=== PATIENT | male | born 1965 | race Caucasian/White ===

== ENCOUNTER 2018-11-12 08:35 | Inpatient (IN) | payer OTHER ==
[2018-11-12 09:03] VITALS: BMI 25.9
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
[2018-11-12] MEDS ORDERED: IBUPROFEN 400 MG TABLET (FP) PO PRN (09:30)
[2018-11-12] MEDS ORDERED: MAGNESIUM CITRATE 300 ML BOTTLE PO PRN (09:30)
[2018-11-12] MEDS ORDERED: MENTHOL/PHENOL 1 EACH UD MM PRN (09:30)
[2018-11-12] MEDS ORDERED: MAGNESIUM HYDROX 2400MG/30ML ORAL SUSPENSION 30 ML CUP PO PRN (09:30)
[2018-11-12] MEDS ORDERED: BISMUTH SUBSALICYLATE 524 MG/30 ML UD PO PRN (09:30)
[2018-11-12] MEDS ORDERED: METHADONE HCL 10 MG TABLET (FOR DETOX USE ONLY) PO ONE (09:30)
[2018-11-12] MEDS ORDERED: MAG HYDROX/AL HYDROX/SIMETH 30 ML UNIT-DOSE CUP PO PRN (09:30)
[2018-11-12] MEDS ORDERED: METHOCARBAMOL 500 MG TABLET PO PRN (09:30)
[2018-11-12] MEDS ORDERED: cloNIDine HCL 0.1 MG TABLET PO PRN (09:30)
[2018-11-12] MEDS ORDERED: ACETAMINOPHEN 325 MG TABLET (FP) PO PRN ×2 (09:30)
[2018-11-12] MEDS: amLODIPine BESYLATE 5 MG TABLET (FP) PO SCH (10:52)
[2018-11-12] MEDS: PRENATAL VITAMINS W/ FOLIC ACID TABLET (FP) PO SCH (10:52)
[2018-11-12] MEDS: NICOTINE 7 MG/24 HOURS TOPICAL PATCH TD SCH ×2 (10:54→12:22)
[2018-11-12 15:21] LABS: HEMATOCRIT 46.4 % (35.4-49); HEMOGLOBIN 15.9 GM/dL (11.7-16.9); MCH 32.2 pg (25.7-33.7); MCHC 34.3 g/dl (32.0-35.9); PLATELET COUNT 204 K/MM3 (134-434); RBC 4.93 M/mm3 (4.00-5.60); RDW 13.5 % (11.9-15.9); WHITE BLOOD COUNT 7.2 K/mm3 (4.0-10.0)
[2018-11-12 15:37] LABS: ALBUMIN 3.8 g/dl (3.4-5.0); BILIRUBIN,TOTAL 0.4 mg/dL (0.2-1); BLOOD UREA NITROGEN 12.6 mg/dL (7-18); CALCIUM 9.5 mg/dL (8.5-10.1); CREATININE 0.9 mg/dL (0.55-1.3); POTASSIUM 4.7 mmol/L (3.5-5.1); TOT PROT 7.5 g/dl (6.4-8.2)
[2018-11-12] MEDS: THIAMINE HCL 100 MG TABLET (FP) PO SCH (22:09)
[2018-11-12] MEDS: MELATONIN 5 MG TABLETS PO PRN (22:10)
[2018-11-13] MEDS ORDERED: METHADONE HCL 10 MG TABLET (FOR DETOX USE ONLY) ONE (09:20)
[2018-11-13] MEDS ORDERED: METHADONE HCL 5 MG TABLET (FOR DETOX USE ONLY) ONE (09:20)
[2018-11-13] MEDS: hydrOXYzine PAMOATE 25 MG CAPSULE (FP) PO PRN (09:53)
[2018-11-13] MEDS: amLODIPine BESYLATE 5 MG TABLET (FP) PO SCH (09:53)
[2018-11-13] MEDS: PRENATAL VITAMINS W/ FOLIC ACID TABLET (FP) PO SCH (09:53)
[2018-11-13] MEDS: NICOTINE 7 MG/24 HOURS TOPICAL PATCH TD SCH (09:55)
[2018-11-13] MEDS ORDERED: METHADONE (DETOX) 20 MG, METHADONE (DETOX) 5 MG PO ONE (10:00)
--- NOTE | 2018-11-13 16:21 | PN ---
BHS COWS - Scale Resting Pulse: 1= [place] 81-100 Sweatin= Chills/Flushing Restless Observation: 1= Difficult to Sit Still Pupil Size: 0= Normal to Room Light Bone or Joint Aches: 1= Mild Discomfort Runny Nose/ Eye Tearin= Nasal Congestion GI Upset > 30mins: 2= Nausea/Diarrhea Tremor Observation of Outstretched Hands: 2= Slight Tremor Visible Yawning Observation: 1= 1-2x During Session Anxiety or Irritability: 2=Irritable/Anxious Goose Flesh Skin: 0=Smooth Skin COWS Score: 12 BHS Progress Note (SOAP) Subjective: Nausea, Runny Nose, Anxious, Tremors Objective: PATIENT A & O X 3, OBSERVED AMBULATING ON DETOX UNIT UNASSISTED. IN NO ACUTE DISTRESS. 11/13/18 16:22 Vital Signs Temperature 97.8 F 11/13/18 13:37 Pulse Rate 84 11/13/18 13:37 Respiratory Rate 20 11/13/18 13:37 Blood Pressure 120/68 11/13/18 13:37 O2 Sat by Pulse Oximetry (%) Laboratory Tests 11/12/18 11/12/18 11/12/18 09:50 09:50 09:50 WBC 7.2 RBC 4.93 Hgb 15.9 Hct 46.4 MCV 94.0 MCH 32.2 MCHC 34.3 RDW 13.5 Plt Count 204 MPV 10.0 Sodium 137 Potassium 4.7 Chloride 100 Carbon Dioxide 31 Anion Gap 6 L BUN 12.6 Creatinine 0.9 Est GFR (CKD-EPI)AfAm 113.41 Est GFR (CKD-EPI)NonAf 97.85 Random Glucose 96 Calcium 9.5 Total Bilirubin 0.4 AST 9 L ALT 24 Alkaline Phosphatase 85 Total Protein 7.5 Albumin 3.8 RPR Titer Nonreactive HIV 1&2 Antibody Screen HIV P24 Antigen 11/12/18 09:50 WBC RBC Hgb Hct MCV MCH MCHC RDW Plt Count MPV Sodium Potassium Chloride Carbon Dioxide Anion Gap BUN Creatinine Est GFR (CKD-EPI)AfAm Est GFR (CKD-EPI)NonAf Random Glucose Calcium Total Bilirubin AST ALT Alkaline Phosphatase Total Protein Albumin RPR Titer HIV 1&2 Antibody Screen Negative HIV P24 Antigen Negative LABS NOTED. Assessment: 11/13/18 16:23 WITHDRAWAL SYMPTOMS. Plan: CONTINUE DETOX.
[2018-11-13] MEDS: MELATONIN 5 MG TABLETS PO PRN (22:07)
[2018-11-13] MEDS: THIAMINE HCL 100 MG TABLET (FP) PO SCH (22:07)
[2018-11-14] MEDS ORDERED: METHADONE HCL 10 MG TABLET (FOR DETOX USE ONLY) PO ONE (10:00)
[2018-11-14] MEDS: amLODIPine BESYLATE 5 MG TABLET (FP) PO SCH (10:34)
[2018-11-14] MEDS: PRENATAL VITAMINS W/ FOLIC ACID TABLET (FP) PO SCH (10:34)
[2018-11-14] MEDS: hydrOXYzine PAMOATE 25 MG CAPSULE (FP) PO PRN ×2 (10:35→21:49)
[2018-11-14] MEDS: NICOTINE 7 MG/24 HOURS TOPICAL PATCH TD SCH (10:35)
--- NOTE | 2018-11-14 11:14 | PN ---
BHS COWS - Scale Resting Pulse: 1= [place] 81-100 Sweatin= Chills/Flushing Restless Observation: 1= Difficult to Sit Still Pupil Size: 0= Normal to Room Light Bone or Joint Aches: 1= Mild Discomfort Runny Nose/ Eye Tearin= Nasal Congestion GI Upset > 30mins: 0= None Tremor Observation of Outstretched Hands: 1= Tremor [place], Not Seen Yawning Observation: 0= None Anxiety or Irritability: 1=Feels Anxious/Irritable Goose Flesh Skin: 0=Smooth Skin COWS Score: 7 BHS Progress Note (SOAP) Subjective: c/o anxious, body aches Objective: 11/14/18 11:12 Vital Signs Temperature 98.0 F 11/14/18 09:13 Pulse Rate 91 H 11/14/18 09:13 Respiratory Rate 20 11/14/18 09:13 Blood Pressure 113/69 11/14/18 09:13 O2 Sat by Pulse Oximetry (%) Laboratory Last Values WBC 7.2 K/mm3 (4.0-10.0) 11/12/18 09:50 RBC 4.93 M/mm3 (4.00-5.60) 11/12/18 09:50 Hgb 15.9 GM/dL (11.7-16.9) 11/12/18 09:50 Hct 46.4 % (35.4-49) 11/12/18 09:50 MCV 94.0 fl (80-96) 11/12/18 09:50 MCH 32.2 pg (25.7-33.7) 11/12/18 09:50 MCHC 34.3 g/dl (32.0-35.9) 11/12/18 09:50 RDW 13.5 % (11.9-15.9) 11/12/18 09:50 Plt Count 204 K/MM3 (134-434) 11/12/18 09:50 MPV 10.0 fl (7.5-11.1) 11/12/18 09:50 Sodium 137 mmol/L (136-145) 11/12/18 09:50 Potassium 4.7 mmol/L (3.5-5.1) 11/12/18 09:50 Chloride 100 mmol/L (98-107) 11/12/18 09:50 Carbon Dioxide 31 mmol/L (21-32) 11/12/18 09:50 Anion Gap 6 MMOL/L (8-16) L 11/12/18 09:50 BUN 12.6 mg/dL (7-18) 11/12/18 09:50 Creatinine 0.9 mg/dL (0.55-1.3) 11/12/18 09:50 Est GFR (CKD-EPI)AfAm 113.41 11/12/18 09:50 Est GFR (CKD-EPI)NonAf 97.85 11/12/18 09:50 Random Glucose 96 mg/dL (74-106) 11/12/18 09:50 Calcium 9.5 mg/dL (8.5-10.1) 11/12/18 09:50 Total Bilirubin 0.4 mg/dL (0.2-1) 11/12/18 09:50 AST 9 U/L (15-37) L 11/12/18 09:50 ALT 24 U/L (13-61) 11/12/18 09:50 Alkaline Phosphatase 85 U/L (45-117) 11/12/18 09:50 Total Protein 7.5 g/dl (6.4-8.2) 11/12/18 09:50 Albumin 3.8 g/dl (3.4-5.0) 11/12/18 09:50 RPR Titer Nonreactive (NONREACTIVE) 11/12/18 09:50 HIV 1&2 Antibody Screen Negative 11/12/18 09:50 HIV P24 Antigen Negative 11/12/18 09:50 labs reviewed Assessment: 11/14/18 11:12 Aox3 no acute distress full ROM no gait abnormality, ambulating in the unit withdrawal sx Plan: continue detox MAT discussed with patient , plans to go to methadone treatment program post detox increase fluids continue to monitor
[2018-11-14] MEDS: MELATONIN 5 MG TABLETS PO PRN (21:49)
[2018-11-14] MEDS: THIAMINE HCL 100 MG TABLET (FP) PO SCH (21:49)
[2018-11-15] MEDS ORDERED: METHADONE HCL 10 MG TABLET (FOR DETOX USE ONLY) ONE (09:09)
[2018-11-15] MEDS ORDERED: METHADONE HCL 5 MG TABLET (FOR DETOX USE ONLY) ONE (09:10)
[2018-11-15] MEDS ORDERED: METHADONE (DETOX) 10 MG, METHADONE (DETOX) 5 MG PO ONE (10:00)
[2018-11-15] MEDS: PRENATAL VITAMINS W/ FOLIC ACID TABLET (FP) PO SCH (10:40)
[2018-11-15] MEDS: NICOTINE 7 MG/24 HOURS TOPICAL PATCH TD SCH (10:41)
[2018-11-15] MEDS: amLODIPine BESYLATE 5 MG TABLET (FP) PO SCH (10:41)
--- NOTE | 2018-11-15 17:06 | PN ---
BHS COWS - Scale Resting Pulse: 0= [place] 80 or Below Sweatin= Chills/Flushing Restless Observation: 1= Difficult to Sit Still Pupil Size: 0= Normal to Room Light Bone or Joint Aches: 2= Severe Diffuse Aches Runny Nose/ Eye Tearin= None GI Upset > 30mins: 0= None Tremor Observation of Outstretched Hands: 0= None Yawning Observation: 1= 1-2x During Session Anxiety or Irritability: 2=Irritable/Anxious Goose Flesh Skin: 0=Smooth Skin COWS Score: 7 BHS Progress Note (SOAP) Subjective: Anxious, Restless, Body Aches. Objective: PATIENT A & O X 3, OBSERVED AMBULATING ON DETOX UNIT UNASSISTED. IN NO ACUTE DISTRESS. 11/15/18 17:05 Vital Signs Temperature 99.4 F 11/15/18 14:15 Pulse Rate 70 11/15/18 14:15 Respiratory Rate 16 11/15/18 14:15 Blood Pressure 102/70 11/15/18 14:15 O2 Sat by Pulse Oximetry (%) Laboratory Tests 11/12/18 11/12/18 11/12/18 09:50 09:50 09:50 WBC 7.2 RBC 4.93 Hgb 15.9 Hct 46.4 MCV 94.0 MCH 32.2 MCHC 34.3 RDW 13.5 Plt Count 204 MPV 10.0 Sodium 137 Potassium 4.7 Chloride 100 Carbon Dioxide 31 Anion Gap 6 L BUN 12.6 Creatinine 0.9 Est GFR (CKD-EPI)AfAm 113.41 Est GFR (CKD-EPI)NonAf 97.85 Random Glucose 96 Calcium 9.5 Total Bilirubin 0.4 AST 9 L ALT 24 Alkaline Phosphatase 85 Total Protein 7.5 Albumin 3.8 RPR Titer Nonreactive HIV 1&2 Antibody Screen HIV P24 Antigen 11/12/18 09:50 WBC RBC Hgb Hct MCV MCH MCHC RDW Plt Count MPV Sodium Potassium Chloride Carbon Dioxide Anion Gap BUN Creatinine Est GFR (CKD-EPI)AfAm Est GFR (CKD-EPI)NonAf Random Glucose Calcium Total Bilirubin AST ALT Alkaline Phosphatase Total Protein Albumin RPR Titer HIV 1&2 Antibody Screen Negative HIV P24 Antigen Negative LABS NOTED. Assessment: 11/15/18 17:06 WITHDRAWAL SYMPTOMS. Plan: CONTINUE DETOX.
[2018-11-15] MEDS: hydrOXYzine PAMOATE 25 MG CAPSULE (FP) PO PRN (22:13)
[2018-11-15] MEDS: MELATONIN 5 MG TABLETS PO PRN (22:13)
[2018-11-15] MEDS: THIAMINE HCL 100 MG TABLET (FP) PO SCH (22:13)
[2018-11-16] MEDS: PRENATAL VITAMINS W/ FOLIC ACID TABLET (FP) PO SCH (09:25)
[2018-11-16] MEDS: amLODIPine BESYLATE 5 MG TABLET (FP) PO SCH (09:25)
[2018-11-16] MEDS: NICOTINE 7 MG/24 HOURS TOPICAL PATCH TD SCH (09:25)
[2018-11-16] MEDS ORDERED: METHADONE HCL 10 MG TABLET (FOR DETOX USE ONLY) PO ONE (10:00)
[2018-11-16] MEDS ORDERED: BACITRACIN 15 GM TUBE TOPICAL OINTMENT TP ONE (14:26)
--- NOTE | 2018-11-16 17:06 | PN ---
BHS COWS - Scale Resting Pulse: 0= [place] 80 or Below Sweatin= No chills or Flushing Restless Observation: 1= Difficult to Sit Still Pupil Size: 0= Normal to Room Light Bone or Joint Aches: 2= Severe Diffuse Aches Runny Nose/ Eye Tearin= None GI Upset > 30mins: 0= None Tremor Observation of Outstretched Hands: 0= None Yawning Observation: 1= 1-2x During Session Anxiety or Irritability: 2=Irritable/Anxious Goose Flesh Skin: 0=Smooth Skin COWS Score: 6 BHS Progress Note (SOAP) Subjective: Restless, Body Aches, Poor Appetite. Objective: PATIENT A & O X 3, OBSERVED AMBULATING ON DETOX UNIT UNASSISTED. IN NO ACUTE DISTRESS. 11/16/18 17:04 Vital Signs Temperature 97.9 F 11/16/18 13:36 Pulse Rate 78 11/16/18 13:36 Respiratory Rate 18 11/16/18 13:36 Blood Pressure 111/68 11/16/18 13:36 O2 Sat by Pulse Oximetry (%) Laboratory Tests 11/12/18 11/12/18 11/12/18 09:50 09:50 09:50 WBC 7.2 RBC 4.93 Hgb 15.9 Hct 46.4 MCV 94.0 MCH 32.2 MCHC 34.3 RDW 13.5 Plt Count 204 MPV 10.0 Sodium 137 Potassium 4.7 Chloride 100 Carbon Dioxide 31 Anion Gap 6 L BUN 12.6 Creatinine 0.9 Est GFR (CKD-EPI)AfAm 113.41 Est GFR (CKD-EPI)NonAf 97.85 Random Glucose 96 Calcium 9.5 Total Bilirubin 0.4 AST 9 L ALT 24 Alkaline Phosphatase 85 Total Protein 7.5 Albumin 3.8 RPR Titer Nonreactive HIV 1&2 Antibody Screen HIV P24 Antigen 11/12/18 09:50 WBC RBC Hgb Hct MCV MCH MCHC RDW Plt Count MPV Sodium Potassium Chloride Carbon Dioxide Anion Gap BUN Creatinine Est GFR (CKD-EPI)AfAm Est GFR (CKD-EPI)NonAf Random Glucose Calcium Total Bilirubin AST ALT Alkaline Phosphatase Total Protein Albumin RPR Titer HIV 1&2 Antibody Screen Negative HIV P24 Antigen Negative LABS NOTED. Assessment: 11/16/18 17:05 WITHDRAWAL SYMPTOMS. Plan: CONTINUE DETOX. PATIENT SCHEDULED FOR D/C FROM DETOX UNIT TOMORROW.
[2018-11-16] MEDS ORDERED: BACITRACIN 15 GM TUBE TOPICAL OINTMENT TP SCH (22:00)
[2018-11-16] MEDS: MELATONIN 5 MG TABLETS PO PRN (22:19)
[2018-11-16] MEDS: THIAMINE HCL 100 MG TABLET (FP) PO SCH (22:19)
[2018-11-16] MEDS: hydrOXYzine PAMOATE 25 MG CAPSULE (FP) PO PRN (22:20)
[2018-11-17] MEDS ORDERED: METHADONE HCL 5 MG TABLET (FOR DETOX USE ONLY) PO ONE (06:00)
[2018-11-17 06:44] VITALS: BP 121/70; PULSE 68; TEMP 97.9
--- NOTE | 2018-11-17 13:42 | DS ---
[facility] Detox Discharge Summary Admission Date: 11/12/18 Discharge Date: 11/17/18 - History Present History: Opioid Dependence Additional Comments: Pt is medically cleared and is discharge today. Pt completed his detox protocol. Pt is encouraged to follow-up with [facility] oupatient program and also to follow-up with his pmd. Pt verbalized understanding. Pt is alert and oriented x3 and in no respiratory distress. Pertinent Past History: H/O HTN, asthma, dyslipidemia, heroin use disorder. - Physical Exam Results Vital Signs: Vital Signs Temperature 97.9 F 11/17/18 06:44 Pulse Rate 68 11/17/18 06:44 Respiratory Rate 18 11/17/18 06:44 Blood Pressure 121/70 11/17/18 06:44 O2 Sat by Pulse Oximetry (%) Vital Signs 11/17/18 06:44 Temperature 97.9 F Pulse Rate 68 Respiratory 18 Rate Blood Pressure 121/70 Lab Results WBC 7.2 K/mm3 (4.0-10.0) 11/12/18 09:50 RBC 4.93 M/mm3 (4.00-5.60) 11/12/18 09:50 Hgb 15.9 GM/dL (11.7-16.9) 11/12/18 09:50 Hct 46.4 % (35.4-49) 11/12/18 09:50 MCV 94.0 fl (80-96) 11/12/18 09:50 MCHC 34.3 g/dl (32.0-35.9) 11/12/18 09:50 RDW 13.5 % (11.9-15.9) 11/12/18 09:50 Plt Count 204 K/MM3 (134-434) 11/12/18 09:50 Sodium 137 mmol/L (136-145) 11/12/18 09:50 Potassium 4.7 mmol/L (3.5-5.1) 11/12/18 09:50 Chloride 100 mmol/L (98-107) 11/12/18 09:50 Carbon Dioxide 31 mmol/L (21-32) 11/12/18 09:50 Anion Gap 6 MMOL/L (8-16) L 11/12/18 09:50 BUN 12.6 mg/dL (7-18) 11/12/18 09:50 Creatinine 0.9 mg/dL (0.55-1.3) 11/12/18 09:50 Random Glucose 96 mg/dL (74-106) 11/12/18 09:50 Calcium 9.5 mg/dL (8.5-10.1) 11/12/18 09:50 Labs noted. Pertinent Admission Physical Exam Findings: withdrawal symptoms. - Treatment Hospital Course: Detox Protocol Followed, Detoxed Safely, Responded well, Discharged Condition Good - Medication Discharge Medications: Ambulatory Orders NK [No Known Home Medication] 11/12/18 - Diagnosis (1) Hypercholesterolemia Status: Acute (2) Hypertension Status: Acute - AMA Did Patient Leave Against Medical Advice: No
== END 2018-11-17 06:55 | disposition home or self-care (01) | DRG 773 ==
LOC: YASAS 08:35 → Y3N 09:51
PROVIDERS: ADMIT Allergy & Immunology; ATTEND Allergy & Immunology
PROC: HZ2ZZZZ Detoxification Services for Substance Abuse Treatment (ICD-10-PCS; principal; 2018-11-12)
DX: F11.23 Opioid dependence with withdrawal (principal); I10 Essential (primary) hypertension; J45.909 Unspecified asthma, uncomplicated; E78.00 Pure hypercholesterolemia, unspecified; E78.5 Hyperlipidemia, unspecified; Z87.828 Personal history of other (healed) physical injury and trauma; Z59.0 Homelessness
CPT/HCPCS: 36415; 80053; 85027; 86593; 87389

== ENCOUNTER 2020-06-09 16:55 | Inpatient (IN) | payer OTHER ==
[2020-06-09 17:28] VITALS: BMI 22.8
[2020-06-09] MEDS ORDERED: BISMUTH SUBSALICYLATE 524 MG/30 ML UD PO PRN (20:18)
[2020-06-09] MEDS ORDERED: IBUPROFEN 400 MG TABLET (FP) PO PRN (20:18)
[2020-06-09] MEDS ORDERED: MAG HYDROX/AL HYDROX/SIMETH 30 ML UNIT-DOSE CUP PO PRN (20:18)
[2020-06-09] MEDS ORDERED: MENTHOL/PHENOL 1 EACH UD MM PRN (20:18)
[2020-06-09] MEDS ORDERED: METHOCARBAMOL 500 MG TABLET PO PRN (20:18)
[2020-06-09] MEDS ORDERED: MAGNESIUM CITRATE 300 ML BOTTLE PO PRN (20:18)
[2020-06-09] MEDS ORDERED: NICOTINE POLACRILEX 2 MG GUM BUC PRN (20:18)
[2020-06-09] MEDS ORDERED: ONDANSETRON *ODT* 4 MG TABLET SL PRN (20:18)
[2020-06-09] MEDS ORDERED: MAGNESIUM HYDROX 2400MG/30ML ORAL SUSPENSION 30 ML CUP PO PRN (20:18)
[2020-06-09] MEDS ORDERED: ACETAMINOPHEN 325 MG TABLET (FP) PO PRN ×2 (20:18)
[2020-06-09] MEDS: MELATONIN 5 MG TABLETS PO SCH (22:30)
[2020-06-09] MEDS: THIAMINE HCL 100 MG TABLET (FP) PO SCH (22:30)
[2020-06-09] MEDS: hydrOXYzine PAMOATE 25 MG CAPSULE (FP) PO PRN (22:30)
[2020-06-10] MEDS ORDERED: diazePAM 5 MG TABLET PO PRN (08:52)
[2020-06-10] MEDS ORDERED: ALBUTEROL SO4 HFA INHALER IH PRN (08:54)
[2020-06-10] MEDS ORDERED: METHADONE HCL 40 MG DISPERSABLE TABLET PO ONE (10:00)
[2020-06-10] MEDS: diazePAM 5 MG TABLET PO SCH ×3 (10:07→22:01)
[2020-06-10] MEDS: PRENATAL VITAMINS W/ FOLIC ACID TABLET (FP) PO SCH (10:07)
[2020-06-10] MEDS: NICOTINE 21 MG/24 HOURS TOPICAL PATCH TD SCH (10:07)
[2020-06-10 10:58] LABS: HEMATOCRIT 42.4 % (35.4-49); HEMOGLOBIN 14.6 GM/dL (11.7-16.9); MCH 34.2 pg (25.7-33.7); MCHC 34.4 g/dl (32.0-35.9); MEAN CELL VOLUME 99.5 fl (80-96); MEAN PLT VOLUME 10.1 fl (7.5-11.1); PLATELET COUNT 213 K/MM3 (134-434); RBC 4.26 M/mm3 (4.00-5.60); RDW 13.8 % (11.9-15.9); WHITE BLOOD COUNT 7.4 K/mm3 (4.0-10.0)
[2020-06-10 11:06] LABS: CALCIUM 9.1 mg/dL (8.5-10.1)
[2020-06-10 11:07] LABS: ALBUMIN 3.7 g/dl (3.4-5.0); BLOOD UREA NITROGEN 13.8 mg/dL (7-18)
[2020-06-10 11:11] LABS: CREATININE 0.8 mg/dL (0.55-1.3)
[2020-06-10 11:12] LABS: BILIRUBIN,TOTAL 0.6 mg/dL (0.2-1); TOT PROT 7.3 g/dl (6.4-8.2)
[2020-06-10] MEDS: HALOPERIDOL 5 MG TABLET PO SCH (11:22)
[2020-06-10] MEDS: VENLAFAXINE HCL 75 MG E.R. CAPSULES PO SCH (11:22)
[2020-06-10] MEDS: traZODone HCL 50 MG TABLET (FP) PO SCH (22:00)
[2020-06-10] MEDS: THIAMINE HCL 100 MG TABLET (FP) PO SCH (22:00)
[2020-06-10] MEDS: QUEtiapine FUMARATE 200 MG TABLET PO SCH (22:00)
[2020-06-10] MEDS: MELATONIN 5 MG TABLETS PO SCH (22:02)
[2020-06-11] MEDS: METHADONE HCL 40 MG DISPERSABLE TABLET PO SCH (05:38)
[2020-06-11] MEDS: diazePAM 5 MG TABLET PO SCH ×4 (05:39→22:25)
[2020-06-11] MEDS: HALOPERIDOL 5 MG TABLET PO SCH (10:05)
[2020-06-11] MEDS: NICOTINE 21 MG/24 HOURS TOPICAL PATCH TD SCH (10:05)
[2020-06-11] MEDS: PRENATAL VITAMINS W/ FOLIC ACID TABLET (FP) PO SCH (10:05)
[2020-06-11] MEDS: VENLAFAXINE HCL 75 MG E.R. CAPSULES PO SCH (10:05)
[2020-06-11] MEDS: MELATONIN 5 MG TABLETS PO SCH (22:22)
[2020-06-11] MEDS: THIAMINE HCL 100 MG TABLET (FP) PO SCH (22:22)
[2020-06-11] MEDS: QUEtiapine FUMARATE 200 MG TABLET PO SCH (22:23)
[2020-06-11] MEDS: traZODone HCL 50 MG TABLET (FP) PO SCH (22:25)
[2020-06-12] MEDS: METHADONE HCL 40 MG DISPERSABLE TABLET PO SCH (06:27)
[2020-06-12] MEDS: diazePAM 5 MG TABLET PO SCH ×3 (06:27→22:06)
[2020-06-12] MEDS: HALOPERIDOL 5 MG TABLET PO SCH (10:57)
[2020-06-12] MEDS: PRENATAL VITAMINS W/ FOLIC ACID TABLET (FP) PO SCH (10:57)
[2020-06-12] MEDS: VENLAFAXINE HCL 75 MG E.R. CAPSULES PO SCH (10:57)
[2020-06-12] MEDS: NICOTINE 21 MG/24 HOURS TOPICAL PATCH TD SCH (10:57)
[2020-06-12] MEDS: THIAMINE HCL 100 MG TABLET (FP) PO SCH (22:06)
[2020-06-12] MEDS: MELATONIN 5 MG TABLETS PO SCH (22:07)
[2020-06-12] MEDS: QUEtiapine FUMARATE 200 MG TABLET PO SCH (22:09)
[2020-06-12] MEDS: traZODone HCL 50 MG TABLET (FP) PO SCH (22:09)
[2020-06-13] MEDS: METHADONE HCL 40 MG DISPERSABLE TABLET PO SCH (06:00)
[2020-06-13] MEDS: diazePAM 5 MG TABLET PO SCH ×2 (06:01→17:46)
[2020-06-13 06:06] LABS: SARS-CoV-2 NAA Not Detected (Not Detected)
[2020-06-13] MEDS: PRENATAL VITAMINS W/ FOLIC ACID TABLET (FP) PO SCH (10:24)
[2020-06-13] MEDS: NICOTINE 21 MG/24 HOURS TOPICAL PATCH TD SCH (10:25)
[2020-06-13] MEDS: VENLAFAXINE HCL 75 MG E.R. CAPSULES PO SCH (10:25)
[2020-06-13] MEDS: hydrOXYzine PAMOATE 25 MG CAPSULE (FP) PO PRN (10:25)
[2020-06-13] MEDS: HALOPERIDOL 5 MG TABLET PO SCH (10:25)
[2020-06-13] MEDS: MELATONIN 5 MG TABLETS PO SCH (22:26)
[2020-06-13] MEDS: THIAMINE HCL 100 MG TABLET (FP) PO SCH (22:26)
[2020-06-13] MEDS: traZODone HCL 50 MG TABLET (FP) PO SCH (22:27)
[2020-06-13] MEDS: QUEtiapine FUMARATE 200 MG TABLET PO SCH (22:27)
[2020-06-14] MEDS: METHADONE HCL 40 MG DISPERSABLE TABLET PO SCH (05:57)
[2020-06-14] MEDS ORDERED: diazePAM 5 MG TABLET PO ONE (06:00)
[2020-06-14 08:44] VITALS: BP 139/79; PULSE 82; TEMP 98.2
== END 2020-06-14 09:17 | disposition home or self-care (01) | DRG 773 ==
LOC: YASAS 16:55 → Y6N 20:04 → UNDOADMIN 20:04 → Y6N 06-12 15:55
PROVIDERS: ADMIT Allergy & Immunology; ATTEND Allergy & Immunology
PROC: HZ2ZZZZ Detoxification Services for Substance Abuse Treatment (ICD-10-PCS; principal; 2020-06-09)
DX: F10.230 Alcohol dependence with withdrawal, uncomplicated (principal); F11.20 Opioid dependence, uncomplicated; F12.20 Cannabis dependence, uncomplicated; F17.210 Nicotine dependence, cigarettes, uncomplicated; F19.282 Other psychoactive substance dependence with psychoactive substance-induced sleep disorder; F20.9 Schizophrenia, unspecified; F19.24 Other psychoactive substance dependence with psychoactive substance-induced mood disorder; I10 Essential (primary) hypertension; J45.909 Unspecified asthma, uncomplicated; E78.5 Hyperlipidemia, unspecified; Z89.021 Acquired absence of right finger(s)
CPT/HCPCS: 36415; 80053; 85027; 86780; 93005; 93010; C9803; U0003; U0005

== ENCOUNTER 2022-09-09 12:10 | Inpatient (IN) | payer OTHER ==
[2022-09-09 14:20] VITALS: BMI 27.2
[2022-09-09] MEDS ORDERED: BISMUTH SUBSALICYLATE 262 MG/15 ML BTL PO PRN (15:36)
[2022-09-09] MEDS ORDERED: LOPERAMIDE HCL 2 MG CAPSULE PO PRN (15:36)
[2022-09-09] MEDS ORDERED: POLYETHYLENE GLYCOL (HEALTHYLAX) 3350 17 GM PACKET PO PRN (15:36)
[2022-09-09] MEDS ORDERED: IBUPROFEN 600 MG TABLET (FP) PO PRN (15:36)
[2022-09-09] MEDS ORDERED: BENZONATATE 200 MG CAPSULE PO PRN (15:36)
[2022-09-09] MEDS ORDERED: guaiFENesin 600 MG TABLET.ER (FP) PO PRN (15:36)
[2022-09-09] MEDS ORDERED: MAG HYDROX/AL HYDROX/SIMETH 30 ML UNIT-DOSE CUP PO PRN (15:36)
[2022-09-09] MEDS ORDERED: ONDANSETRON *ODT* 4 MG TABLET SL PRN (15:36)
[2022-09-09] MEDS ORDERED: NALOXONE HCL (KLOXXADO) 8 MG SPRAY NS PRN (15:36)
[2022-09-09] MEDS ORDERED: P-EPHED 60MG/TRIPROLIDI 2.5MG TABLET PO PRN (15:36)
[2022-09-09] MEDS ORDERED: MAGNESIUM HYDROX 2400MG/30ML ORAL SUSPENSION 30 ML CUP PO PRN (15:36)
[2022-09-09] MEDS ORDERED: BENZOCAINE/MENTHOL (CHLORASEPTIC ) LOZENGE MM PRN (15:36)
[2022-09-09] MEDS ORDERED: NICOTINE POLACRILEX 2 MG GUM BUC PRN (15:36)
[2022-09-09] MEDS ORDERED: IBUPROFEN 400 MG TABLET (FP) PO PRN (15:36)
[2022-09-09] MEDS ORDERED: DICYCLOMINE HCL 10 MG CAPSULE PO PRN (15:36)
[2022-09-09] MEDS ORDERED: NALOXONE HCL 0.4 MG/ML VIAL IM PRN (15:36)
[2022-09-09] MEDS ORDERED: ACETAMINOPHEN 325 MG TABLET (FP) PO PRN (15:36)
[2022-09-09] MEDS: MELATONIN 5 MG TABLETS PO SCH (22:28)
[2022-09-09] MEDS: METHOCARBAMOL 500 MG TABLET PO PRN (22:28)
[2022-09-09] MEDS: THIAMINE HCL 100 MG TABLET (FP) PO SCH (22:28)
[2022-09-09] MEDS: hydrOXYzine PAMOATE 25 MG CAPSULE (FP) PO PRN (22:28)
[2022-09-10] MEDS ORDERED: ALBUTEROL SO4 HFA INHALER IH PRN (09:33)
[2022-09-10] MEDS: PRENATAL VITAMINS W/ FOLIC ACID TABLET (FP) PO SCH (10:09)
[2022-09-10] MEDS: methaDONE HCL 40 MG DISPERSABLE TABLET PO SCH (10:09)
[2022-09-10] MEDS ORDERED: diazePAM 5 MG TABLET PO PRN (10:32)
[2022-09-10] MEDS: diazePAM 5 MG TABLET PO SCH ×3 (11:15→22:04)
[2022-09-10 13:56] LABS: HEMATOCRIT 40.2 % (35.4-49); HEMOGLOBIN 13.2 GM/dL (11.7-16.9); MCH 31.8 pg (25.7-33.7); MCHC 32.9 g/dl (32.0-35.9); MEAN CELL VOLUME 96.6 fl (80-96); PLATELET COUNT 200 10^3/uL (134-434); RBC 4.16 M/mm3 (4.00-5.60); RDW 13.8 % (11.9-15.9); WHITE BLOOD COUNT 5.8 K/mm3 (4.0-10.0)
[2022-09-10 14:33] LABS: POTASSIUM 4.2 mmol/L (3.5-5.1)
[2022-09-10 14:37] LABS: CALCIUM 9.3 mg/dL (8.5-10.1)
[2022-09-10 14:43] LABS: CREATININE 0.7 mg/dL (0.55-1.3)
[2022-09-10 14:44] LABS: BILIRUBIN,TOTAL 0.4 mg/dL (0.2-1); TOT PROT 6.7 g/dl (6.4-8.2)
[2022-09-10] MEDS: MELATONIN 5 MG TABLETS PO SCH (22:03)
[2022-09-10] MEDS: THIAMINE HCL 100 MG TABLET (FP) PO SCH (22:03)
[2022-09-11] MEDS: methaDONE HCL 40 MG DISPERSABLE TABLET PO SCH (05:45)
[2022-09-11] MEDS: diazePAM 5 MG TABLET PO SCH ×4 (05:45→22:17)
[2022-09-11] MEDS: hydrOXYzine PAMOATE 25 MG CAPSULE (FP) PO PRN (06:21)
[2022-09-11] MEDS: PRENATAL VITAMINS W/ FOLIC ACID TABLET (FP) PO SCH (10:07)
[2022-09-11] MEDS: VENLAFAXINE HCL 37.5 MG E.R. CAPSULE PO SCH (12:15)
[2022-09-11] MEDS: QUEtiapine FUMARATE 100 MG TABLET (FP) PO SCH (22:17)
[2022-09-11] MEDS: MELATONIN 5 MG TABLETS PO SCH (22:17)
[2022-09-11] MEDS: THIAMINE HCL 100 MG TABLET (FP) PO SCH (22:17)
[2022-09-12] MEDS: diazePAM 5 MG TABLET PO SCH ×3 (05:59→21:28)
[2022-09-12] MEDS: methaDONE HCL 40 MG DISPERSABLE TABLET PO SCH (05:59)
[2022-09-12] MEDS: VENLAFAXINE HCL 37.5 MG E.R. CAPSULE PO SCH (10:16)
[2022-09-12] MEDS: PRENATAL VITAMINS W/ FOLIC ACID TABLET (FP) PO SCH (10:16)
[2022-09-12] MEDS: hydrOXYzine PAMOATE 25 MG CAPSULE (FP) PO PRN (21:28)
[2022-09-12] MEDS: QUEtiapine FUMARATE 100 MG TABLET (FP) PO SCH (21:28)
[2022-09-12] MEDS: MELATONIN 5 MG TABLETS PO SCH (21:28)
[2022-09-12] MEDS: THIAMINE HCL 100 MG TABLET (FP) PO SCH (21:28)
[2022-09-12] MEDS: METHOCARBAMOL 500 MG TABLET PO PRN (21:28)
[2022-09-13] MEDS: diazePAM 5 MG TABLET PO SCH ×2 (05:35→17:54)
[2022-09-13] MEDS: methaDONE HCL 40 MG DISPERSABLE TABLET PO SCH (05:36)
[2022-09-13] MEDS: VENLAFAXINE HCL 37.5 MG E.R. CAPSULE PO SCH (10:25)
[2022-09-13] MEDS: PRENATAL VITAMINS W/ FOLIC ACID TABLET (FP) PO SCH (10:25)
[2022-09-13] MEDS: QUEtiapine FUMARATE 100 MG TABLET (FP) PO SCH (21:57)
[2022-09-13] MEDS: hydrOXYzine PAMOATE 25 MG CAPSULE (FP) PO PRN (21:57)
[2022-09-13] MEDS: METHOCARBAMOL 500 MG TABLET PO PRN (21:57)
[2022-09-13] MEDS: MELATONIN 5 MG TABLETS PO SCH (21:57)
[2022-09-13] MEDS: THIAMINE HCL 100 MG TABLET (FP) PO SCH (21:57)
[2022-09-14] MEDS: methaDONE HCL 40 MG DISPERSABLE TABLET PO SCH (05:39)
[2022-09-14] MEDS ORDERED: diazePAM 5 MG TABLET PO ONE (06:00)
[2022-09-14 06:05] VITALS: RESP 16
[2022-09-14 09:17] VITALS: BP 137/82; PULSE 75; TEMP 98.2
[2022-09-14] MEDS: VENLAFAXINE HCL 37.5 MG E.R. CAPSULE PO SCH (09:26)
[2022-09-14] MEDS: PRENATAL VITAMINS W/ FOLIC ACID TABLET (FP) PO SCH (09:26)
== END 2022-09-14 11:48 | disposition other institution (70) | DRG 773 ==
LOC: YASAS 12:10 → Y3N 17:02
PROVIDERS: ADMIT Allergy & Immunology; ATTEND Allergy & Immunology
PROC: HZ2ZZZZ Detoxification Services for Substance Abuse Treatment (ICD-10-PCS; principal; 2022-09-09)
DX: F10.230 Alcohol dependence with withdrawal, uncomplicated (principal); F11.20 Opioid dependence, uncomplicated; F12.20 Cannabis dependence, uncomplicated; F17.210 Nicotine dependence, cigarettes, uncomplicated; F19.982 Other psychoactive substance use, unspecified with psychoactive substance-induced sleep disorder; F19.94 Other psychoactive substance use, unspecified with psychoactive substance-induced mood disorder; F20.9 Schizophrenia, unspecified; I10 Essential (primary) hypertension; E78.5 Hyperlipidemia, unspecified; J45.20 Mild intermittent asthma, uncomplicated; Z87.828 Personal history of other (healed) physical injury and trauma
CPT/HCPCS: 36415; 80053; 85027; 86780; 87635

== ENCOUNTER 2022-09-14 11:30 | Inpatient (IN) | payer OTHER ==
[2022-09-14] MEDS ORDERED: ACETAMINOPHEN 325 MG TABLET (FP) PO PRN (12:55)
[2022-09-14] MEDS ORDERED: MAG HYDROX/AL HYDROX/SIMETH 30 ML UNIT-DOSE CUP PO PRN (12:55)
[2022-09-14] MEDS ORDERED: MAGNESIUM HYDROX 2400MG/30ML ORAL SUSPENSION 30 ML CUP PO PRN (12:55)
[2022-09-14] MEDS ORDERED: NICOTINE POLACRILEX 2 MG GUM BUC PRN (12:55)
[2022-09-14] MEDS ORDERED: NALOXONE HCL (KLOXXADO) 8 MG SPRAY NS PRN (12:55)
[2022-09-14] MEDS ORDERED: NALOXONE HCL 0.4 MG/ML VIAL IVPUSH PRN (12:55)
[2022-09-14] MEDS ORDERED: guaiFENesin 600 MG TABLET.ER (FP) PO PRN (12:55)
[2022-09-14] MEDS ORDERED: AMMONIUM LACTATE 12% LOTION 225 GM BOTTLE TP PRN (12:55)
[2022-09-14] MEDS ORDERED: POLYETHYLENE GLYCOL (HEALTHYLAX) 3350 17 GM PACKET PO PRN (12:55)
[2022-09-14] MEDS ORDERED: BENZOCAINE/MENTHOL (CHLORASEPTIC ) LOZENGE MM PRN (12:55)
[2022-09-14] MEDS ORDERED: BENZONATATE 200 MG CAPSULE PO PRN (12:55)
[2022-09-14] MEDS ORDERED: NICOTINE 10 MG CARTRIDGE (INHALER) IH PRN (12:55)
[2022-09-14] MEDS ORDERED: LOPERAMIDE HCL 2 MG CAPSULE PO PRN (12:55)
[2022-09-14] MEDS ORDERED: ALBUTEROL SO4 HFA INHALER IH PRN (12:56)
[2022-09-14] MEDS: THIAMINE HCL 100 MG TABLET (FP) PO SCH (21:27)
[2022-09-14] MEDS: MELATONIN 5 MG TABLETS PO SCH (21:27)
[2022-09-14] MEDS: QUEtiapine FUMARATE 100 MG TABLET (FP) PO SCH (21:27)
[2022-09-15] MEDS: methaDONE HCL 40 MG DISPERSABLE TABLET PO SCH (06:21)
[2022-09-15] MEDS: VENLAFAXINE HCL 37.5 MG E.R. CAPSULE PO SCH (09:04)
[2022-09-15] MEDS: PRENATAL VITAMINS W/ FOLIC ACID TABLET (FP) PO SCH (09:05)
[2022-09-15] MEDS: hydrOXYzine PAMOATE 25 MG CAPSULE (FP) PO PRN (18:33)
[2022-09-15] MEDS: METHOCARBAMOL 500 MG TABLET PO PRN (21:28)
[2022-09-15] MEDS: MELATONIN 5 MG TABLETS PO SCH (21:28)
[2022-09-15] MEDS: THIAMINE HCL 100 MG TABLET (FP) PO SCH (21:28)
[2022-09-15] MEDS: QUEtiapine FUMARATE 100 MG TABLET (FP) PO SCH (21:28)
[2022-09-16] MEDS: methaDONE HCL 40 MG DISPERSABLE TABLET PO SCH (06:32)
[2022-09-16] MEDS: hydrOXYzine PAMOATE 25 MG CAPSULE (FP) PO PRN (06:48)
[2022-09-16] MEDS: PRENATAL VITAMINS W/ FOLIC ACID TABLET (FP) PO SCH (10:05)
[2022-09-16] MEDS: VENLAFAXINE HCL 37.5 MG E.R. CAPSULE PO SCH (10:05)
[2022-09-16] MEDS: MELATONIN 5 MG TABLETS PO SCH (21:13)
[2022-09-16] MEDS: THIAMINE HCL 100 MG TABLET (FP) PO SCH (21:13)
[2022-09-16] MEDS: QUEtiapine FUMARATE 200 MG TABLET PO SCH (21:13)
[2022-09-17] MEDS: methaDONE HCL 40 MG DISPERSABLE TABLET PO SCH (06:40)
[2022-09-17] MEDS: VENLAFAXINE HCL 37.5 MG E.R. CAPSULE PO SCH (09:18)
[2022-09-17] MEDS: PRENATAL VITAMINS W/ FOLIC ACID TABLET (FP) PO SCH (09:18)
[2022-09-17] MEDS: IBUPROFEN 600 MG TABLET (FP) PO PRN (09:20)
[2022-09-17] MEDS: QUEtiapine FUMARATE 200 MG TABLET PO SCH (21:23)
[2022-09-17] MEDS: MELATONIN 5 MG TABLETS PO SCH (21:23)
[2022-09-17] MEDS: THIAMINE HCL 100 MG TABLET (FP) PO SCH (21:23)
[2022-09-18] MEDS: methaDONE HCL 40 MG DISPERSABLE TABLET PO SCH (06:03)
[2022-09-18] MEDS: VENLAFAXINE HCL 37.5 MG E.R. CAPSULE PO SCH (09:42)
[2022-09-18] MEDS: IBUPROFEN 600 MG TABLET (FP) PO PRN (09:42)
[2022-09-18] MEDS: PRENATAL VITAMINS W/ FOLIC ACID TABLET (FP) PO SCH (09:42)
[2022-09-18] MEDS: QUEtiapine FUMARATE 200 MG TABLET PO SCH (21:27)
[2022-09-18] MEDS: THIAMINE HCL 100 MG TABLET (FP) PO SCH (21:28)
[2022-09-18] MEDS: MELATONIN 5 MG TABLETS PO SCH (21:28)
[2022-09-18] MEDS: IBUPROFEN 400 MG TABLET (FP) PO PRN (21:29)
[2022-09-19] MEDS: methaDONE HCL 40 MG DISPERSABLE TABLET PO SCH (06:14)
[2022-09-19] MEDS: VENLAFAXINE HCL 37.5 MG E.R. CAPSULE PO SCH (09:54)
[2022-09-19] MEDS: PRENATAL VITAMINS W/ FOLIC ACID TABLET (FP) PO SCH (09:55)
[2022-09-19] MEDS: METHOCARBAMOL 500 MG TABLET PO PRN (09:56)
[2022-09-19] MEDS: QUEtiapine FUMARATE 200 MG TABLET PO SCH (21:21)
[2022-09-19] MEDS: THIAMINE HCL 100 MG TABLET (FP) PO SCH (21:21)
[2022-09-19] MEDS: MELATONIN 5 MG TABLETS PO SCH (21:21)
[2022-09-20] MEDS: methaDONE HCL 40 MG DISPERSABLE TABLET PO SCH (06:14)
[2022-09-20] MEDS: PRENATAL VITAMINS W/ FOLIC ACID TABLET (FP) PO SCH (09:21)
[2022-09-20] MEDS: VENLAFAXINE HCL 37.5 MG E.R. CAPSULE PO SCH (09:21)
[2022-09-20] MEDS: IBUPROFEN 600 MG TABLET (FP) PO PRN (09:22)
[2022-09-20] MEDS: LIDOCAINE 5% TOPICAL PATCH TP SCH (14:45)
[2022-09-20] MEDS ORDERED: QUEtiapine FUMARATE 100 MG TABLET (FP) ONE (21:20)
[2022-09-20] MEDS: LIDOCAINE PATCH REMOVAL MC SCH (21:21)
[2022-09-20] MEDS: IBUPROFEN 400 MG TABLET (FP) PO PRN (21:22)
[2022-09-20] MEDS: QUEtiapine FUMARATE 300 MG TABLET PO SCH (21:22)
[2022-09-20] MEDS: MELATONIN 5 MG TABLETS PO SCH (21:22)
[2022-09-20] MEDS: THIAMINE HCL 100 MG TABLET (FP) PO SCH (21:23)
[2022-09-20] MEDS: METHYL SALICYLATE/MENTHOL OINT 30 GM TUBE TP SCH (21:24)
[2022-09-21] MEDS: methaDONE HCL 40 MG DISPERSABLE TABLET PO SCH (06:21)
[2022-09-21] MEDS: PRENATAL VITAMINS W/ FOLIC ACID TABLET (FP) PO SCH (09:36)
[2022-09-21] MEDS: LIDOCAINE 5% TOPICAL PATCH TP SCH (09:36)
[2022-09-21] MEDS: VENLAFAXINE HCL 37.5 MG E.R. CAPSULE PO SCH (09:36)
[2022-09-21] MEDS: METHYL SALICYLATE/MENTHOL OINT 30 GM TUBE TP SCH ×2 (09:37→21:16)
[2022-09-21] MEDS: COLLOIDAL OATMEAL 1 BAR EACH TP PRN (10:21)
[2022-09-21] MEDS ORDERED: QUEtiapine FUMARATE 100 MG TABLET (FP) ONE (19:01)
[2022-09-21] MEDS: QUEtiapine FUMARATE 300 MG TABLET PO SCH (21:15)
[2022-09-21] MEDS: THIAMINE HCL 100 MG TABLET (FP) PO SCH (21:15)
[2022-09-21] MEDS: LIDOCAINE PATCH REMOVAL MC SCH (21:15)
[2022-09-21] MEDS: MELATONIN 5 MG TABLETS PO SCH (21:15)
[2022-09-22] MEDS: methaDONE HCL 40 MG DISPERSABLE TABLET PO SCH (06:19)
[2022-09-22] MEDS: METHYL SALICYLATE/MENTHOL OINT 30 GM TUBE TP SCH ×2 (09:43→21:29)
[2022-09-22] MEDS: LIDOCAINE 5% TOPICAL PATCH TP SCH (09:43)
[2022-09-22] MEDS: PRENATAL VITAMINS W/ FOLIC ACID TABLET (FP) PO SCH (09:44)
[2022-09-22] MEDS: VENLAFAXINE HCL 37.5 MG E.R. CAPSULE PO SCH (09:44)
[2022-09-22] MEDS: IBUPROFEN 600 MG TABLET (FP) PO PRN (09:45)
[2022-09-22] MEDS ORDERED: QUEtiapine FUMARATE 100 MG TABLET (FP) ONE (19:26)
[2022-09-22] MEDS: MELATONIN 5 MG TABLETS PO SCH (21:28)
[2022-09-22] MEDS: THIAMINE HCL 100 MG TABLET (FP) PO SCH (21:28)
[2022-09-22] MEDS: LIDOCAINE PATCH REMOVAL MC SCH (21:29)
[2022-09-22] MEDS: QUEtiapine FUMARATE 300 MG TABLET PO SCH (21:29)
[2022-09-23] MEDS: methaDONE HCL 40 MG DISPERSABLE TABLET PO SCH (06:15)
[2022-09-23] MEDS: PRENATAL VITAMINS W/ FOLIC ACID TABLET (FP) PO SCH (10:20)
[2022-09-23] MEDS: LIDOCAINE 5% TOPICAL PATCH TP SCH (10:20)
[2022-09-23] MEDS: VENLAFAXINE HCL 37.5 MG E.R. CAPSULE PO SCH (10:20)
[2022-09-23] MEDS: METHYL SALICYLATE/MENTHOL OINT 30 GM TUBE TP SCH ×2 (10:20→21:53)
[2022-09-23] MEDS ORDERED: QUEtiapine FUMARATE 100 MG TABLET (FP) ONE (19:36)
[2022-09-23] MEDS: MELATONIN 5 MG TABLETS PO SCH (21:52)
[2022-09-23] MEDS: THIAMINE HCL 100 MG TABLET (FP) PO SCH (21:52)
[2022-09-23] MEDS: QUEtiapine FUMARATE 300 MG TABLET PO SCH (21:52)
[2022-09-23] MEDS: LIDOCAINE PATCH REMOVAL MC SCH (21:53)
[2022-09-24] MEDS: methaDONE HCL 40 MG DISPERSABLE TABLET PO SCH (06:24)
[2022-09-24] MEDS: COLLOIDAL OATMEAL 1 BAR EACH TP PRN (06:31)
[2022-09-24] MEDS: PRENATAL VITAMINS W/ FOLIC ACID TABLET (FP) PO SCH (09:36)
[2022-09-24] MEDS: VENLAFAXINE HCL 37.5 MG E.R. CAPSULE PO SCH (09:37)
[2022-09-24] MEDS: METHYL SALICYLATE/MENTHOL OINT 30 GM TUBE TP SCH ×2 (09:37→21:31)
[2022-09-24] MEDS: hydrOXYzine PAMOATE 25 MG CAPSULE (FP) PO PRN (09:37)
[2022-09-24] MEDS: LIDOCAINE 5% TOPICAL PATCH TP SCH (09:37)
[2022-09-24] MEDS: IBUPROFEN 600 MG TABLET (FP) PO PRN (09:52)
[2022-09-24] MEDS ORDERED: QUEtiapine FUMARATE 100 MG TABLET (FP) ONE (18:54)
[2022-09-24] MEDS: MELATONIN 5 MG TABLETS PO SCH (21:31)
[2022-09-24] MEDS: LIDOCAINE PATCH REMOVAL MC SCH (21:31)
[2022-09-24] MEDS: THIAMINE HCL 100 MG TABLET (FP) PO SCH (21:31)
[2022-09-24] MEDS: QUEtiapine FUMARATE 300 MG TABLET PO SCH (21:32)
[2022-09-25] MEDS: methaDONE HCL 40 MG DISPERSABLE TABLET PO SCH (06:07)
[2022-09-25] MEDS: LIDOCAINE 5% TOPICAL PATCH TP SCH (09:47)
[2022-09-25] MEDS: METHYL SALICYLATE/MENTHOL OINT 30 GM TUBE TP SCH ×2 (09:47→21:31)
[2022-09-25] MEDS: PRENATAL VITAMINS W/ FOLIC ACID TABLET (FP) PO SCH (09:48)
[2022-09-25] MEDS: VENLAFAXINE HCL 37.5 MG E.R. CAPSULE PO SCH (09:48)
[2022-09-25] MEDS ORDERED: QUEtiapine FUMARATE 100 MG TABLET (FP) ONE (18:38)
[2022-09-25] MEDS: QUEtiapine FUMARATE 300 MG TABLET PO SCH (21:31)
[2022-09-25] MEDS: LIDOCAINE PATCH REMOVAL MC SCH (21:31)
[2022-09-25] MEDS: THIAMINE HCL 100 MG TABLET (FP) PO SCH (21:31)
[2022-09-25] MEDS: MELATONIN 5 MG TABLETS PO SCH (21:31)
[2022-09-26] MEDS: methaDONE HCL 40 MG DISPERSABLE TABLET PO SCH (06:24)
[2022-09-26] MEDS: PRENATAL VITAMINS W/ FOLIC ACID TABLET (FP) PO SCH (10:10)
[2022-09-26] MEDS: LIDOCAINE 5% TOPICAL PATCH TP SCH (10:10)
[2022-09-26] MEDS: IBUPROFEN 600 MG TABLET (FP) PO PRN (10:11)
[2022-09-26] MEDS: VENLAFAXINE HCL 37.5 MG E.R. CAPSULE PO SCH (10:11)
[2022-09-26] MEDS: METHYL SALICYLATE/MENTHOL OINT 30 GM TUBE TP SCH ×2 (10:11→21:36)
[2022-09-26] MEDS ORDERED: QUEtiapine FUMARATE 100 MG TABLET (FP) ONE (19:17)
[2022-09-26] MEDS: THIAMINE HCL 100 MG TABLET (FP) PO SCH (21:36)
[2022-09-26] MEDS: QUEtiapine FUMARATE 300 MG TABLET PO SCH (21:36)
[2022-09-26] MEDS: LIDOCAINE PATCH REMOVAL MC SCH (21:36)
[2022-09-26] MEDS: MELATONIN 5 MG TABLETS PO SCH (21:36)
[2022-09-27] MEDS: methaDONE HCL 40 MG DISPERSABLE TABLET PO SCH (06:14)
[2022-09-27] MEDS: PRENATAL VITAMINS W/ FOLIC ACID TABLET (FP) PO SCH (09:32)
[2022-09-27] MEDS: METHYL SALICYLATE/MENTHOL OINT 30 GM TUBE TP SCH ×2 (09:32→21:40)
[2022-09-27] MEDS: LIDOCAINE 5% TOPICAL PATCH TP SCH (09:32)
[2022-09-27] MEDS: VENLAFAXINE HCL 37.5 MG E.R. CAPSULE PO SCH (09:32)
[2022-09-27] MEDS: IBUPROFEN 600 MG TABLET (FP) PO PRN (09:33)
[2022-09-27] MEDS ORDERED: QUEtiapine FUMARATE 100 MG TABLET (FP) ONE (19:35)
[2022-09-27] MEDS: LIDOCAINE PATCH REMOVAL MC SCH (21:40)
[2022-09-27] MEDS: MELATONIN 5 MG TABLETS PO SCH (21:40)
[2022-09-27] MEDS: THIAMINE HCL 100 MG TABLET (FP) PO SCH (21:41)
[2022-09-27] MEDS: QUEtiapine FUMARATE 300 MG TABLET PO SCH (21:41)
[2022-09-27] MEDS: IBUPROFEN 400 MG TABLET (FP) PO PRN (21:42)
[2022-09-28] MEDS: methaDONE HCL 40 MG DISPERSABLE TABLET PO SCH (06:08)
[2022-09-28] MEDS: VENLAFAXINE HCL 37.5 MG E.R. CAPSULE PO SCH (10:00)
[2022-09-28] MEDS: PRENATAL VITAMINS W/ FOLIC ACID TABLET (FP) PO SCH (10:00)
[2022-09-28] MEDS: LIDOCAINE 5% TOPICAL PATCH TP SCH (10:00)
[2022-09-28] MEDS: METHYL SALICYLATE/MENTHOL OINT 30 GM TUBE TP SCH ×2 (10:01→21:40)
[2022-09-28] MEDS ORDERED: QUEtiapine FUMARATE 100 MG TABLET (FP) ONE (19:00)
[2022-09-28] MEDS: MELATONIN 5 MG TABLETS PO SCH (21:26)
[2022-09-28] MEDS: THIAMINE HCL 100 MG TABLET (FP) PO SCH (21:26)
[2022-09-28] MEDS: IBUPROFEN 600 MG TABLET (FP) PO PRN (21:27)
[2022-09-28] MEDS: LIDOCAINE PATCH REMOVAL MC SCH (21:41)
[2022-09-28] MEDS: QUEtiapine FUMARATE 300 MG TABLET PO SCH (21:41)
[2022-09-29] MEDS: methaDONE HCL 40 MG DISPERSABLE TABLET PO SCH (06:01)
[2022-09-29] MEDS: METHYL SALICYLATE/MENTHOL OINT 30 GM TUBE TP SCH ×2 (09:45→22:04)
[2022-09-29] MEDS: PRENATAL VITAMINS W/ FOLIC ACID TABLET (FP) PO SCH (09:46)
[2022-09-29] MEDS: LIDOCAINE 5% TOPICAL PATCH TP SCH (09:46)
[2022-09-29] MEDS: VENLAFAXINE HCL 37.5 MG E.R. CAPSULE PO SCH (09:46)
[2022-09-29] MEDS: IBUPROFEN 600 MG TABLET (FP) PO PRN ×2 (09:47→21:25)
[2022-09-29] MEDS ORDERED: QUEtiapine FUMARATE 100 MG TABLET (FP) ONE (19:02)
[2022-09-29] MEDS: THIAMINE HCL 100 MG TABLET (FP) PO SCH (21:23)
[2022-09-29] MEDS: LIDOCAINE PATCH REMOVAL MC SCH (21:23)
[2022-09-29] MEDS: MELATONIN 5 MG TABLETS PO SCH (21:23)
[2022-09-29] MEDS: QUEtiapine FUMARATE 300 MG TABLET PO SCH (21:24)
[2022-09-30] MEDS: methaDONE HCL 40 MG DISPERSABLE TABLET PO SCH (06:05)
[2022-09-30] MEDS: LIDOCAINE 5% TOPICAL PATCH TP SCH (09:43)
[2022-09-30] MEDS: METHYL SALICYLATE/MENTHOL OINT 30 GM TUBE TP SCH ×2 (09:43→21:20)
[2022-09-30] MEDS: VENLAFAXINE HCL 37.5 MG E.R. CAPSULE PO SCH (09:43)
[2022-09-30] MEDS: PRENATAL VITAMINS W/ FOLIC ACID TABLET (FP) PO SCH (09:43)
[2022-09-30] MEDS: IBUPROFEN 600 MG TABLET (FP) PO PRN ×2 (09:43→21:21)
[2022-09-30] MEDS: COLLOIDAL OATMEAL 1 BAR EACH TP PRN (09:45)
[2022-09-30] MEDS ORDERED: QUEtiapine FUMARATE 100 MG TABLET (FP) ONE (19:08)
[2022-09-30] MEDS: QUEtiapine FUMARATE 300 MG TABLET PO SCH (21:20)
[2022-09-30] MEDS: MELATONIN 5 MG TABLETS PO SCH (21:20)
[2022-09-30] MEDS: THIAMINE HCL 100 MG TABLET (FP) PO SCH (21:20)
[2022-09-30] MEDS: LIDOCAINE PATCH REMOVAL MC SCH (21:20)
[2022-10-01] MEDS: methaDONE HCL 40 MG DISPERSABLE TABLET PO SCH (06:25)
[2022-10-01] MEDS: VENLAFAXINE HCL 37.5 MG E.R. CAPSULE PO SCH (09:56)
[2022-10-01] MEDS: LIDOCAINE 5% TOPICAL PATCH TP SCH (09:56)
[2022-10-01] MEDS: METHYL SALICYLATE/MENTHOL OINT 30 GM TUBE TP SCH ×2 (09:56→21:12)
[2022-10-01] MEDS: PRENATAL VITAMINS W/ FOLIC ACID TABLET (FP) PO SCH (09:57)
[2022-10-01] MEDS: IBUPROFEN 600 MG TABLET (FP) PO PRN (09:57)
[2022-10-01] MEDS ORDERED: QUEtiapine FUMARATE 100 MG TABLET (FP) ONE (18:22)
[2022-10-01] MEDS: LIDOCAINE PATCH REMOVAL MC SCH (21:12)
[2022-10-01] MEDS: MELATONIN 5 MG TABLETS PO SCH (21:12)
[2022-10-01] MEDS: QUEtiapine FUMARATE 300 MG TABLET PO SCH (21:12)
[2022-10-01] MEDS: THIAMINE HCL 100 MG TABLET (FP) PO SCH (21:12)
[2022-10-02] MEDS: methaDONE HCL 40 MG DISPERSABLE TABLET PO SCH (06:10)
[2022-10-02] MEDS: IBUPROFEN 600 MG TABLET (FP) PO PRN ×2 (09:47→21:33)
[2022-10-02] MEDS: VENLAFAXINE HCL 37.5 MG E.R. CAPSULE PO SCH (09:48)
[2022-10-02] MEDS: PRENATAL VITAMINS W/ FOLIC ACID TABLET (FP) PO SCH (09:48)
[2022-10-02] MEDS: LIDOCAINE 5% TOPICAL PATCH TP SCH (09:49)
[2022-10-02] MEDS: METHYL SALICYLATE/MENTHOL OINT 30 GM TUBE TP SCH ×2 (09:49→21:33)
[2022-10-02] MEDS ORDERED: QUEtiapine FUMARATE 100 MG TABLET (FP) ONE (18:53)
[2022-10-02] MEDS: MELATONIN 5 MG TABLETS PO SCH (21:32)
[2022-10-02] MEDS: THIAMINE HCL 100 MG TABLET (FP) PO SCH (21:32)
[2022-10-02] MEDS: LIDOCAINE PATCH REMOVAL MC SCH (21:33)
[2022-10-02] MEDS: hydrOXYzine PAMOATE 25 MG CAPSULE (FP) PO PRN (21:33)
[2022-10-02] MEDS: QUEtiapine FUMARATE 300 MG TABLET PO SCH (21:36)
[2022-10-03] MEDS: methaDONE HCL 40 MG DISPERSABLE TABLET PO SCH (06:26)
[2022-10-03] MEDS: LIDOCAINE 5% TOPICAL PATCH TP SCH (09:42)
[2022-10-03] MEDS: METHYL SALICYLATE/MENTHOL OINT 30 GM TUBE TP SCH ×2 (09:42→21:31)
[2022-10-03] MEDS: PRENATAL VITAMINS W/ FOLIC ACID TABLET (FP) PO SCH (09:42)
[2022-10-03] MEDS: VENLAFAXINE HCL 37.5 MG E.R. CAPSULE PO SCH (09:42)
[2022-10-03] MEDS: THIAMINE HCL 100 MG TABLET (FP) PO SCH (21:30)
[2022-10-03] MEDS: LIDOCAINE PATCH REMOVAL MC SCH (21:30)
[2022-10-03] MEDS: MELATONIN 5 MG TABLETS PO SCH (21:30)
[2022-10-03] MEDS: QUEtiapine FUMARATE 300 MG TABLET PO SCH (21:30)
[2022-10-04] MEDS: methaDONE HCL 40 MG DISPERSABLE TABLET PO SCH (06:21)
[2022-10-04] MEDS: PRENATAL VITAMINS W/ FOLIC ACID TABLET (FP) PO SCH (09:37)
[2022-10-04] MEDS: METHYL SALICYLATE/MENTHOL OINT 30 GM TUBE TP SCH ×2 (09:37→21:25)
[2022-10-04] MEDS: LIDOCAINE 5% TOPICAL PATCH TP SCH (09:37)
[2022-10-04] MEDS: VENLAFAXINE HCL 37.5 MG E.R. CAPSULE PO SCH (09:37)
[2022-10-04] MEDS: COLLOIDAL OATMEAL 1 BAR EACH TP PRN (09:38)
[2022-10-04] MEDS ORDERED: QUEtiapine FUMARATE 100 MG TABLET (FP) ONE (19:34)
[2022-10-04] MEDS: QUEtiapine FUMARATE 300 MG TABLET PO SCH (21:24)
[2022-10-04] MEDS: MELATONIN 5 MG TABLETS PO SCH (21:24)
[2022-10-04] MEDS: THIAMINE HCL 100 MG TABLET (FP) PO SCH (21:24)
[2022-10-04] MEDS: LIDOCAINE PATCH REMOVAL MC SCH (21:25)
[2022-10-05] MEDS: methaDONE HCL 40 MG DISPERSABLE TABLET PO SCH (06:05)
[2022-10-05] MEDS: PRENATAL VITAMINS W/ FOLIC ACID TABLET (FP) PO SCH (09:36)
[2022-10-05] MEDS: VENLAFAXINE HCL 37.5 MG E.R. CAPSULE PO SCH (09:36)
[2022-10-05] MEDS: LIDOCAINE 5% TOPICAL PATCH TP SCH (09:37)
[2022-10-05] MEDS: METHYL SALICYLATE/MENTHOL OINT 30 GM TUBE TP SCH ×2 (09:38→21:32)
[2022-10-05] MEDS ORDERED: QUEtiapine FUMARATE 100 MG TABLET (FP) ONE (19:23)
[2022-10-05] MEDS: LIDOCAINE PATCH REMOVAL MC SCH (21:32)
[2022-10-05] MEDS: THIAMINE HCL 100 MG TABLET (FP) PO SCH (21:33)
[2022-10-05] MEDS: MELATONIN 5 MG TABLETS PO SCH (21:33)
[2022-10-05] MEDS: QUEtiapine FUMARATE 300 MG TABLET PO SCH (21:33)
[2022-10-05 22:32] VITALS: BMI 28.1
[2022-10-06] MEDS: methaDONE HCL 40 MG DISPERSABLE TABLET PO SCH (06:36)
[2022-10-06] MEDS: METHYL SALICYLATE/MENTHOL OINT 30 GM TUBE TP SCH ×2 (09:56→21:39)
[2022-10-06] MEDS: VENLAFAXINE HCL 37.5 MG E.R. CAPSULE PO SCH (09:57)
[2022-10-06] MEDS: PRENATAL VITAMINS W/ FOLIC ACID TABLET (FP) PO SCH (09:58)
[2022-10-06] MEDS: LIDOCAINE 5% TOPICAL PATCH TP SCH (09:58)
[2022-10-06] MEDS: BACITRACIN 0.9 GM PACKET TP SCH ×2 (12:21→21:38)
[2022-10-06] MEDS ORDERED: QUEtiapine FUMARATE 100 MG TABLET (FP) ONE (18:31)
[2022-10-06] MEDS: MELATONIN 5 MG TABLETS PO SCH (21:38)
[2022-10-06] MEDS: THIAMINE HCL 100 MG TABLET (FP) PO SCH (21:38)
[2022-10-06] MEDS: LIDOCAINE PATCH REMOVAL MC SCH (21:39)
[2022-10-06] MEDS: QUEtiapine FUMARATE 300 MG TABLET PO SCH (21:40)
[2022-10-07] MEDS: methaDONE HCL 40 MG DISPERSABLE TABLET PO SCH (06:25)
[2022-10-07] MEDS: VENLAFAXINE HCL 37.5 MG E.R. CAPSULE PO SCH (09:41)
[2022-10-07] MEDS: PRENATAL VITAMINS W/ FOLIC ACID TABLET (FP) PO SCH (09:42)
[2022-10-07] MEDS: LIDOCAINE 5% TOPICAL PATCH TP SCH (09:42)
[2022-10-07] MEDS: BACITRACIN 0.9 GM PACKET TP SCH ×2 (09:43→21:10)
[2022-10-07] MEDS: METHYL SALICYLATE/MENTHOL OINT 30 GM TUBE TP SCH ×2 (09:44→21:11)
[2022-10-07] MEDS ORDERED: QUEtiapine FUMARATE 100 MG TABLET (FP) ONE (19:44)
[2022-10-07] MEDS: MELATONIN 5 MG TABLETS PO SCH (21:10)
[2022-10-07] MEDS: QUEtiapine FUMARATE 300 MG TABLET PO SCH (21:10)
[2022-10-07] MEDS: THIAMINE HCL 100 MG TABLET (FP) PO SCH (21:10)
[2022-10-07] MEDS: LIDOCAINE PATCH REMOVAL MC SCH (21:11)
[2022-10-08] MEDS: methaDONE HCL 40 MG DISPERSABLE TABLET PO SCH (06:19)
[2022-10-08] MEDS: BACITRACIN 0.9 GM PACKET TP SCH ×2 (09:42→21:26)
[2022-10-08] MEDS: VENLAFAXINE HCL 37.5 MG E.R. CAPSULE PO SCH (09:42)
[2022-10-08] MEDS: PRENATAL VITAMINS W/ FOLIC ACID TABLET (FP) PO SCH (09:42)
[2022-10-08] MEDS: METHYL SALICYLATE/MENTHOL OINT 30 GM TUBE TP SCH ×2 (09:42→21:27)
[2022-10-08] MEDS: LIDOCAINE 5% TOPICAL PATCH TP SCH (09:43)
[2022-10-08] MEDS ORDERED: QUEtiapine FUMARATE 100 MG TABLET (FP) ONE (18:27)
[2022-10-08] MEDS: QUEtiapine FUMARATE 300 MG TABLET PO SCH (21:25)
[2022-10-08] MEDS: THIAMINE HCL 100 MG TABLET (FP) PO SCH (21:26)
[2022-10-08] MEDS: MELATONIN 5 MG TABLETS PO SCH (21:26)
[2022-10-08] MEDS: LIDOCAINE PATCH REMOVAL MC SCH (21:42)
[2022-10-09] MEDS: methaDONE HCL 40 MG DISPERSABLE TABLET PO SCH (06:06)
[2022-10-09] MEDS: LIDOCAINE 5% TOPICAL PATCH TP SCH (09:41)
[2022-10-09] MEDS: METHYL SALICYLATE/MENTHOL OINT 30 GM TUBE TP SCH ×2 (09:41→21:25)
[2022-10-09] MEDS: VENLAFAXINE HCL 37.5 MG E.R. CAPSULE PO SCH (09:41)
[2022-10-09] MEDS: BACITRACIN 0.9 GM PACKET TP SCH ×2 (09:41→21:25)
[2022-10-09] MEDS: PRENATAL VITAMINS W/ FOLIC ACID TABLET (FP) PO SCH (09:41)
[2022-10-09] MEDS ORDERED: QUEtiapine FUMARATE 100 MG TABLET (FP) ONE (18:50)
[2022-10-09] MEDS: MELATONIN 5 MG TABLETS PO SCH (21:25)
[2022-10-09] MEDS: LIDOCAINE PATCH REMOVAL MC SCH (21:25)
[2022-10-09] MEDS: THIAMINE HCL 100 MG TABLET (FP) PO SCH (21:26)
[2022-10-09] MEDS: QUEtiapine FUMARATE 300 MG TABLET PO SCH (21:26)
[2022-10-10] MEDS: methaDONE HCL 40 MG DISPERSABLE TABLET PO SCH (06:08)
[2022-10-10] MEDS: VENLAFAXINE HCL 37.5 MG E.R. CAPSULE PO SCH (09:57)
[2022-10-10] MEDS: PRENATAL VITAMINS W/ FOLIC ACID TABLET (FP) PO SCH (09:57)
[2022-10-10] MEDS: METHYL SALICYLATE/MENTHOL OINT 30 GM TUBE TP SCH ×2 (09:58→21:40)
[2022-10-10] MEDS: BACITRACIN 0.9 GM PACKET TP SCH ×2 (09:58→21:39)
[2022-10-10] MEDS: LIDOCAINE 5% TOPICAL PATCH TP SCH (09:58)
[2022-10-10] MEDS: IBUPROFEN 600 MG TABLET (FP) PO PRN (11:01)
[2022-10-10] MEDS: QUEtiapine FUMARATE 300 MG TABLET PO SCH (21:39)
[2022-10-10] MEDS: THIAMINE HCL 100 MG TABLET (FP) PO SCH (21:39)
[2022-10-10] MEDS: LIDOCAINE PATCH REMOVAL MC SCH (21:39)
[2022-10-10] MEDS: MELATONIN 5 MG TABLETS PO SCH (21:39)
[2022-10-11] MEDS: methaDONE HCL 40 MG DISPERSABLE TABLET PO SCH (06:26)
[2022-10-11 07:25] VITALS: BP 144/82; PULSE 92; RESP 18; TEMP 96.9
[2022-10-11] MEDS: VENLAFAXINE HCL 37.5 MG E.R. CAPSULE PO SCH (09:41)
[2022-10-11] MEDS: PRENATAL VITAMINS W/ FOLIC ACID TABLET (FP) PO SCH (09:42)
[2022-10-11] MEDS: BACITRACIN 0.9 GM PACKET TP SCH (09:42)
[2022-10-11] MEDS: METHYL SALICYLATE/MENTHOL OINT 30 GM TUBE TP SCH (09:42)
[2022-10-11] MEDS: LIDOCAINE 5% TOPICAL PATCH TP SCH (09:42)
== END 2022-10-11 10:55 | disposition home or self-care (01) | DRG 772 ==
LOC: YASAS 11:30 → Y3E 11:32
PROVIDERS: ADMIT Allergy & Immunology; ATTEND Psychiatry & Neurology Pain Medicine
PROC: HZ42ZZZ Group Counseling for Substance Abuse Treatment, Cognitive-Behavioral (ICD-10-PCS; principal; 2022-09-14)
DX: F10.20 Alcohol dependence, uncomplicated (principal); F11.20 Opioid dependence, uncomplicated; F12.20 Cannabis dependence, uncomplicated; F17.210 Nicotine dependence, cigarettes, uncomplicated; F19.282 Other psychoactive substance dependence with psychoactive substance-induced sleep disorder; F19.24 Other psychoactive substance dependence with psychoactive substance-induced mood disorder; I10 Essential (primary) hypertension; J45.20 Mild intermittent asthma, uncomplicated; R26.89 Other abnormalities of gait and mobility; Z99.89 Dependence on other enabling machines and devices; Z87.81 Personal history of (healed) traumatic fracture; Z87.828 Personal history of other (healed) physical injury and trauma; Z20.822 Contact with and (suspected) exposure to COVID-19
CPT/HCPCS: 36415; 86803; 87635

== ENCOUNTER 2022-11-25 23:10 | Emergency (ER) | payer OTHER ==
[2022-11-25 23:31] VITALS: BP 122/86; PULSE 94; RESP 20; TEMP 98.1; BMI 30.5
== END 2022-11-25 23:49 | disposition left against medical advice (07) ==
LOC: JER 23:10
DX: M79.606 Pain in leg, unspecified (principal)
CPT/HCPCS: 99281-25

== ENCOUNTER 2023-01-15 09:57 | Inpatient (IN) | payer OTHER ==
[2023-01-15 10:28] VITALS: BMI 28.8
[2023-01-15] MEDS ORDERED: IBUPROFEN 400 MG TABLET (FP) PO PRN (11:25)
[2023-01-15] MEDS ORDERED: BENZOCAINE/MENTHOL (CHLORASEPTIC ) LOZENGE MM PRN (11:25)
[2023-01-15] MEDS ORDERED: DICYCLOMINE HCL 10 MG CAPSULE PO PRN (11:25)
[2023-01-15] MEDS ORDERED: guaiFENesin 600 MG TABLET.ER (FP) PO PRN (11:25)
[2023-01-15] MEDS ORDERED: BISMUTH SUBSALICYLATE 524 MG/30 ML PO PRN (11:25)
[2023-01-15] MEDS ORDERED: POLYETHYLENE GLYCOL (HEALTHYLAX) 3350 17 GM PACKET PO PRN (11:25)
[2023-01-15] MEDS ORDERED: MAGNESIUM HYDROX 2400MG/30ML ORAL SUSPENSION 30 ML CUP PO PRN (11:25)
[2023-01-15] MEDS ORDERED: ACETAMINOPHEN 325 MG TABLET (FP) PO PRN (11:25)
[2023-01-15] MEDS ORDERED: MAG HYDROX/AL HYDROX/SIMETH 30 ML UNIT-DOSE CUP PO PRN (11:25)
[2023-01-15] MEDS ORDERED: BENZONATATE 200 MG CAPSULE PO PRN (11:25)
[2023-01-15] MEDS ORDERED: hydrOXYzine PAMOATE 25 MG CAPSULE (FP) PO PRN (12:16)
[2023-01-15] MEDS ORDERED: LOPERAMIDE HCL 2 MG CAPSULE PO PRN (12:18)
[2023-01-15] MEDS ORDERED: NALOXONE HCL (KLOXXADO) 8 MG SPRAY NS PRN (12:21)
[2023-01-15] MEDS ORDERED: NALOXONE HCL 0.4 MG/ML VIAL IM PRN (12:22)
[2023-01-15] MEDS ORDERED: ONDANSETRON *ODT* 4 MG TABLET SL PRN (12:23)
[2023-01-15] MEDS: IBUPROFEN 600 MG TABLET (FP) PO PRN (12:26)
[2023-01-15] MEDS ORDERED: IBUPROFEN 600 MG TABLET (FP) PO ONE (12:28)
[2023-01-15] MEDS: THIAMINE HCL 100 MG TABLET (FP) PO SCH (22:19)
[2023-01-15] MEDS: QUEtiapine FUMARATE 300 MG TABLET PO SCH (22:20)
[2023-01-15] MEDS: MELATONIN 5 MG TABLETS PO SCH (22:21)
[2023-01-16] MEDS ORDERED: methaDONE 80 MG, methaDONE 10 MG PO SCH ×2 (06:00→09:45)
[2023-01-16] MEDS ORDERED: methaDONE HCL 40 MG DISPERSABLE TABLET PO SCH (06:00)
[2023-01-16] MEDS ORDERED: methaDONE HCL 10 MG TABLET PO SCH (09:30)
[2023-01-16] MEDS: PRENATAL VITAMINS W/ FOLIC ACID TABLET (FP) PO SCH (10:44)
[2023-01-16] MEDS: diazePAM 5 MG TABLET PO SCH ×3 (10:44→22:10)
[2023-01-16] MEDS: IBUPROFEN 600 MG TABLET (FP) PO PRN ×2 (10:46→17:17)
[2023-01-16] MEDS: VENLAFAXINE HCL 37.5 MG E.R. CAPSULE PO SCH (10:50)
[2023-01-16 10:56] LABS: HEMATOCRIT 39.2 % (35.4-49); HEMOGLOBIN 13.1 GM/dL (11.7-16.9); MCHC 33.6 g/dl (32.0-35.9); MEAN CELL VOLUME 92.4 fl (80-96); MEAN PLT VOLUME 9.3 fl (7.5-11.1); PLATELET COUNT 242 10^3/uL (134-434); RBC 4.24 M/mm3 (4.00-5.60); WHITE BLOOD COUNT 6.8 K/mm3 (4.0-10.0)
[2023-01-16 11:07] LABS: CHLORIDE 99 mmol/L (98-107); POTASSIUM 3.7 mmol/L (3.5-5.1); SODIUM 136 mmol/L (136-145)
[2023-01-16 11:09] LABS: BLOOD UREA NITROGEN 11.3 mg/dL (7-18); CALCIUM 9.1 mg/dL (8.5-10.1)
[2023-01-16 11:10] LABS: ALBUMIN 3.3 g/dl (3.4-5.0); ANION GAP 7 mmol/L (4-13); CO2 30 mmol/L (21-32); GLUCOSE,RANDOM 105 mg/dL (74-106)
[2023-01-16 11:12] LABS: SGPT/ALT 27 U/L (13-61)
[2023-01-16 11:13] LABS: CREATININE 0.9 mg/dL (0.55-1.3); SGOT/AST 26 U/L (15-37)
[2023-01-16 11:14] LABS: BILIRUBIN,TOTAL 0.6 mg/dL (0.2-1); TOT PROT 7.8 g/dl (6.4-8.2)
[2023-01-16 11:15] LABS: ALK PHOS 156 U/L (45-117)
[2023-01-16] MEDS: diazePAM 5 MG TABLET PO PRN (15:26)
[2023-01-16] MEDS: QUEtiapine FUMARATE 300 MG TABLET PO SCH (22:09)
[2023-01-16] MEDS: MELATONIN 5 MG TABLETS PO SCH (22:09)
[2023-01-16] MEDS: THIAMINE HCL 100 MG TABLET (FP) PO SCH (22:09)
[2023-01-16] MEDS: ALBUTEROL SO4 HFA INHALER IH PRN (22:13)
[2023-01-16] MEDS: METHOCARBAMOL 500 MG TABLET PO PRN (22:13)
[2023-01-17] MEDS: methaDONE 80 MG, methaDONE 10 MG PO SCH (05:17)
[2023-01-17] MEDS: diazePAM 5 MG TABLET PO SCH ×4 (05:17→22:09)
[2023-01-17] MEDS ORDERED: methaDONE 80 MG, methaDONE 10 MG PO SCH (06:00)
[2023-01-17] MEDS: PRENATAL VITAMINS W/ FOLIC ACID TABLET (FP) PO SCH (10:10)
[2023-01-17] MEDS: METHOCARBAMOL 500 MG TABLET PO PRN (10:10)
[2023-01-17] MEDS: VENLAFAXINE HCL 37.5 MG E.R. CAPSULE PO SCH (10:10)
[2023-01-17] MEDS: ALBUTEROL SO4 HFA INHALER IH PRN (10:12)
[2023-01-17] MEDS: IBUPROFEN 600 MG TABLET (FP) PO PRN (14:17)
[2023-01-17] MEDS: diazePAM 5 MG TABLET PO PRN (14:18)
[2023-01-17] MEDS: QUEtiapine FUMARATE 300 MG TABLET PO SCH (22:09)
[2023-01-17] MEDS: THIAMINE HCL 100 MG TABLET (FP) PO SCH (22:09)
[2023-01-17] MEDS: MELATONIN 5 MG TABLETS PO SCH (22:23)
[2023-01-18] MEDS: methaDONE 80 MG, methaDONE 10 MG PO SCH (05:31)
[2023-01-18] MEDS: diazePAM 5 MG TABLET PO SCH ×3 (05:32→22:15)
[2023-01-18] MEDS: PRENATAL VITAMINS W/ FOLIC ACID TABLET (FP) PO SCH (10:21)
[2023-01-18] MEDS: VENLAFAXINE HCL 37.5 MG E.R. CAPSULE PO SCH (10:21)
[2023-01-18] MEDS: ALBUTEROL SO4 HFA INHALER IH PRN (10:21)
[2023-01-18] MEDS: IBUPROFEN 600 MG TABLET (FP) PO PRN (16:41)
[2023-01-18] MEDS: diazePAM 5 MG TABLET PO PRN (16:41)
[2023-01-18] MEDS: THIAMINE HCL 100 MG TABLET (FP) PO SCH (22:15)
[2023-01-18] MEDS: QUEtiapine FUMARATE 300 MG TABLET PO SCH (22:15)
[2023-01-18] MEDS: MELATONIN 5 MG TABLETS PO SCH (22:16)
[2023-01-19] MEDS: methaDONE 80 MG, methaDONE 10 MG PO SCH (05:36)
[2023-01-19] MEDS: diazePAM 5 MG TABLET PO SCH ×2 (05:36→17:19)
[2023-01-19] MEDS: PRENATAL VITAMINS W/ FOLIC ACID TABLET (FP) PO SCH (10:15)
[2023-01-19] MEDS: VENLAFAXINE HCL 37.5 MG E.R. CAPSULE PO SCH (10:15)
[2023-01-19] MEDS: ALBUTEROL SO4 HFA INHALER IH PRN (10:15)
[2023-01-19] MEDS: THIAMINE HCL 100 MG TABLET (FP) PO SCH (22:28)
[2023-01-19] MEDS: QUEtiapine FUMARATE 300 MG TABLET PO SCH (22:28)
[2023-01-19] MEDS: MELATONIN 5 MG TABLETS PO SCH (22:29)
[2023-01-20] MEDS: methaDONE 80 MG, methaDONE 10 MG PO SCH (05:26)
[2023-01-20] MEDS ORDERED: diazePAM 5 MG TABLET PO ONE (06:00)
[2023-01-20] MEDS: PRENATAL VITAMINS W/ FOLIC ACID TABLET (FP) PO SCH (10:10)
[2023-01-20] MEDS: VENLAFAXINE HCL 37.5 MG E.R. CAPSULE PO SCH (10:10)
[2023-01-20] MEDS: ALBUTEROL SO4 HFA INHALER IH PRN (10:11)
[2023-01-20] MEDS: MELATONIN 5 MG TABLETS PO SCH (22:11)
[2023-01-20] MEDS: THIAMINE HCL 100 MG TABLET (FP) PO SCH (22:11)
[2023-01-20] MEDS: QUEtiapine FUMARATE 300 MG TABLET PO SCH (22:11)
[2023-01-20] MEDS: METHOCARBAMOL 500 MG TABLET PO PRN (22:12)
[2023-01-21] MEDS: methaDONE 80 MG, methaDONE 10 MG PO SCH (05:55)
[2023-01-21] MEDS ORDERED: diazePAM 5 MG TABLET PO ONE (06:00)
[2023-01-21 09:37] VITALS: BP 126/70; PULSE 77; RESP 18; TEMP 97.7
[2023-01-21] MEDS: PRENATAL VITAMINS W/ FOLIC ACID TABLET (FP) PO SCH (10:21)
[2023-01-21] MEDS: VENLAFAXINE HCL 37.5 MG E.R. CAPSULE PO SCH (10:21)
== END 2023-01-21 13:45 | disposition other institution (70) | DRG 773 ==
LOC: YASAS 09:57 → Y6N 11:47
PROVIDERS: ADMIT Allergy & Immunology; ATTEND Surgery
PROC: HZ2ZZZZ Detoxification Services for Substance Abuse Treatment (ICD-10-PCS; principal; 2023-01-15)
DX: F10.230 Alcohol dependence with withdrawal, uncomplicated (principal); F11.20 Opioid dependence, uncomplicated; F17.210 Nicotine dependence, cigarettes, uncomplicated; E78.00 Pure hypercholesterolemia, unspecified; I10 Essential (primary) hypertension; Z86.59 Personal history of other mental and behavioral disorders; Z56.0 Unemployment, unspecified; Z59.00 Homelessness unspecified
CPT/HCPCS: 36415; 80053; 80307; 85027; 86780; 87635; Q0162